=== PATIENT | female | born 1965 | race Caucasian/White ===

== ENCOUNTER → 2020-08-03 09:16 | Outpatient (CLI) | payer OTHER, SELFPAY ==
--- NOTE | 2020-08-03 | DI.US.S_ITS ---
PROCEDURE: US ABD AORTA ANEURYSM SCREEN INDICATIONS: SCREENING TECHNIQUE: Real time scanning was performed of the aorta and iliac arteries, with image documentation. COMPARISON: None. FINDINGS: Aorta: Proximal aortic diameter measures 2.1 cm. Mid-aorta measures 2.1 cm. Distal aortic diameter is 1.5 cm. Iliac arteries: Right common iliac artery measures 1.1 cm. Left common iliac artery measures 0.0 cm. IMPRESSION: No aneurysm found. Dictated by: El France M.D. on 08/03/2020 at 10:22 Approved by: El France M.D. on 08/03/2020 at 10:24
== END ==
PROVIDERS: PCP Family Medicine; Referring Provider Family Medicine; Visit Provider Family Medicine
DX: Z13.6 Encounter for screening for cardiovascular disorders (principal); Z82.49 Family history of ischemic heart disease and other diseases of the circulatory system
CPT/HCPCS: 76706

== ENCOUNTER 2020-11-11 06:16 | Emergency (ER) | payer OTHER, SELFPAY ==
[2020-11-11] VITALS (20 sets, daily range): BP systolic 121–186; BP diastolic 58–90; PULSE 54–71; RESP 16–18; TEMP 36; O2SAT 96–98; BMI 35.7
--- NOTE | 2020-11-11 06:49 | DI.CT.S_ITS ---
PROCEDURE: CT HEAD/BRAIN WO CON INDICATIONS: left leg numbness since yesterday TECHNIQUE: Noncontrast 4.5 mm thick angled axial sections acquired from the foramen magnum to the vertex, with coronal and sagittal reformats. For radiation dose reduction, the following was used: automated exposure control, adjustment of mA and/or kV according to patient size. COMPARISON: None. FINDINGS: Image quality: Artifact is present overlying the georgi, limiting evaluation. CSF spaces: Basal cisterns are patent. No extra-axial fluid collections. Ventricles are normal in size and shape. Brain: No midline shift. No intracranial masses or hemorrhage. Haynes-white matter interface is normal. Skull and face: Calvarium and visualized facial bones are intact, without suspicious lesions. Sinuses: Visualized sinuses and mastoids are clear. IMPRESSION: No acute intracranial process. The above findings are concordant with preliminary report. Dictated by: Leanna Cagle M.D. on 11/11/2020 at 7:45 Approved by: Leanna Cagle M.D. on 11/11/2020 at 7:48
--- NOTE | 2020-11-11 06:57 | ED.NEUROSD ---
HPI - Neuro Symptoms/Deficit <DO Robert Lazo Last Filed: 11/13/20 07:03> General Chief Complaint: Neuro Symptoms/Deficit Stated Complaint: left leg spasms/shaking/mild headache/pressure Time Seen by Provider: 11/11/20 06:36 Source: patient and family Mode of arrival: Ambulatory Limitations: no limitations History of Present Illness HPI Narrative: Patient is a 54-year-old female history of hypertension presenting today with left leg numbness and tingling. She says she woke up this morning and was tremoring and should bring than left leg went into a spasm of about 3 minutes and she still has numbness and tingling in that leg leg and it feels heavy. She has no difficulty ambulating. She also has a slight headache. No other extremity weakness no difficulty speaking or facial droop. No chest pain or shortness of breath. states that she is under lot of stress work. On Anticoagulants: No Related Data Allergies Allergy/AdvReac Type Severity Reaction Status Date / Time tramadol AdvReac Verified 11/11/20 09:06 Review of Systems <DO Robert Lazo Last Filed: 11/13/20 07:03> Review of Systems Narrative: GENERAL: Denies chills, fatigue, malaise, fever, sweats, travel HEENT: Denies sinus pain, ear pain, sore throat, difficulty swallowing, neck pain RESPIRATORY: Denies dyspnea, cough, wheezing, hemoptysis, sputum. CARDIOVASCULAR: Denies chest pain, palpitations, orthopnea, edema GASTROINTESTINAL: Denies nausea, vomiting, abdominal pain, diarrhea, constipation, melena. : Denies dysuria, frequency, incontinence, hematuria, urinary retention, flank pain. MUSCULOSKELETAL: Denies weakness, joint pain, or bony pain SKIN: No rash, no erythema, no pruritus NEUROLOGIC: See HPI PSYCHIATRIC: No concerning psychosocial issues. 12 point review of systems is negative except for those stated above and HPI Hematologic/Lymphatic On Anticoagulants: No Patient History <DO Robert Lazo Last Filed: 11/13/20 07:03> Social History Smoking Status: Current every day smoker Smoking Status: Current every day smoker tobacco type: vaping Substance Use Type: does not use Exam <DO Robert Lazo Last Filed: 11/13/20 07:03> Initial Vital Signs Initial Vital Signs: Vital Signs Temperature 96.8 F L 11/11/20 06:30 Pulse Rate 69 11/11/20 06:30 Respiratory Rate 18 11/11/20 06:30 Blood Pressure 186/87 H 11/11/20 06:30 Pulse Oximetry 96 11/11/20 06:30 GENERAL: Alert pleasant 54-year-old male and in no acute distress. HEENT: Head atraumatic,EOMI, pupils reactive, face symmetric, moist mucous membranes CARDIOVASCULAR: Regular rate and rhythm without murmurs, rubs or gallops. RESPIRATORY: Breath sounds equal bilaterally, no wheezes rales or rhonchi. ABDOMEN: Soft, nontender. Normoactive bowel sounds all 4 quadrants. No guarding or rebound. EXTREMITIES: Normal range of motion, no clubbing or edema. Neurovascularly intact NEUROLOGICAL: Alert and oriented x4.Normal gait and speech. Cranial nerves II through XII grossly intact. Good mfspur-ts-xtoh, good mzcv-ch-diye, strength equal bilaterally, no dysarthria or aphasia, sensation in tact to soft touch bilaterally, no visual changes, no facial droop SKIN: Warm, dry, no laceration, no petechiae, no rashes or lesions. <Nancy Cheung MD - Last Filed: 11/11/20 13:08> Initial Vital Signs Initial Vital Signs: Vital Signs Temperature 96.8 F L 11/11/20 06:30 Pulse Rate 69 11/11/20 06:30 Respiratory Rate 18 11/11/20 06:30 Blood Pressure 186/87 H 11/11/20 06:30 Pulse Oximetry 96 11/11/20 06:30 Scores <Millicent Armijo DO - Last Filed: 11/13/20 07:03> NIH Stroke Scale Level of Conciousness: Alert, keenly responsive Ask month/age: Answers both questions correctly. Open/close eyes, close hand: Performs both tasks correctly Best gaze horizontal: Normal Visual kenney: No visual loss Facial palsy: Normal symetrical movement Left arm drift: No drift for full 10 sec Right arm drift: No drift for full 10 sec Left leg drift: No drift for full 5 sec Right leg drift: No drift for full 5 sec Limb ataxia: Absent Sensory on face/arms/legs: Normal, no sensory loss Best language: No aphasia, normal Dysarthria: Normal Extinction or inattention: No abnormality Total NIH Stroke scale score: 0 <Nancy Cheung MD - Last Filed: 11/11/20 13:08> NIH Stroke Scale Total NIH Stroke scale score: 0 Course <Millicent Armijo DO - Last Filed: 11/13/20 07:03> Orders Ordered: Discontinued Medications Acetaminophen (Acetaminophen 325 Mg Tablet) 975 mg PO NOW ONE Stop: 11/11/20 08:36 Last Admin: 11/11/20 08:49 Dose: 325 mg Documented by: JULEE Aspirin (Aspirin 81 Mg Chew Tab) 324 mg PO NOW ONE Stop: 11/11/20 08:36 Last Admin: 11/11/20 08:49 Dose: 324 mg Documented by: JULEE Diazepam (Diazepam 10 Mg/2 Ml Syringe) 5 mg IV NOW ONE Stop: 11/11/20 08:37 Last Admin: 11/11/20 10:38 Dose: 5 mg Documented by: JULEE Vital Signs Vital signs: Vital Signs - 8 hr 11/11/20 06:30 11/11/20 06:46 11/11/20 06:53 Temperature 96.8 F L Pulse Rate 69 64 67 Respiratory Rate 18 Blood Pressure 186/87 H 168/90 H Pulse Oximetry 96 97 98 11/11/20 07:00 11/11/20 07:02 11/11/20 07:30 Temperature Pulse Rate 60 66 68 Respiratory Rate Blood Pressure 132/78 Pulse Oximetry 97 97 97 11/11/20 08:47 11/11/20 08:54 11/11/20 09:00 Temperature Pulse Rate 63 60 58 L Respiratory Rate 16 Blood Pressure 153/72 H 153/72 H Pulse Oximetry 96 97 97 11/11/20 09:01 11/11/20 09:30 11/11/20 10:00 Temperature Pulse Rate 64 57 L 56 L Respiratory Rate Blood Pressure 123/58 L 133/63 Pulse Oximetry 96 96 96 11/11/20 10:01 11/11/20 10:30 11/11/20 11:24 Temperature Pulse Rate 57 L 62 71 Respiratory Rate Blood Pressure 139/61 131/70 Pulse Oximetry 97 96 98 11/11/20 11:30 11/11/20 11:45 11/11/20 12:00 Temperature Pulse Rate 67 67 59 L Respiratory Rate Blood Pressure 136/76 124/69 Pulse Oximetry 96 98 97 11/11/20 12:30 Temperature Pulse Rate 54 L Respiratory Rate Blood Pressure 121/75 Pulse Oximetry 97 <Nancy Cheung MD - Last Filed: 11/11/20 13:08> Orders Ordered: Discontinued Medications Acetaminophen (Acetaminophen 325 Mg Tablet) 975 mg PO NOW ONE Stop: 11/11/20 08:36 Last Admin: 11/11/20 08:49 Dose: 325 mg Documented by: JULEE Aspirin (Aspirin 81 Mg Chew Tab) 324 mg PO NOW ONE Stop: 11/11/20 08:36 Last Admin: 11/11/20 08:49 Dose: 324 mg Documented by: JULEE Diazepam (Diazepam 10 Mg/2 Ml Syringe) 5 mg IV NOW ONE Stop: 11/11/20 08:37 Last Admin: 11/11/20 10:38 Dose: 5 mg Documented by: JULEE Vital Signs Vital signs: Vital Signs - 8 hr 11/11/20 06:30 11/11/20 06:46 11/11/20 06:53 Temperature 96.8 F L Pulse Rate 69 64 67 Respiratory Rate 18 Blood Pressure 186/87 H 168/90 H Pulse Oximetry 96 97 98 11/11/20 07:00 11/11/20 07:02 11/11/20 07:30 Temperature Pulse Rate 60 66 68 Respiratory Rate Blood Pressure 132/78 Pulse Oximetry 97 97 97 11/11/20 08:47 11/11/20 08:54 11/11/20 09:00 Temperature Pulse Rate 63 60 58 L Respiratory Rate 16 Blood Pressure 153/72 H 153/72 H Pulse Oximetry 96 97 97 11/11/20 09:01 11/11/20 09:30 11/11/20 10:00 Temperature Pulse Rate 64 57 L 56 L Respiratory Rate Blood Pressure 123/58 L 133/63 Pulse Oximetry 96 96 96 11/11/20 10:01 11/11/20 10:30 11/11/20 11:24 Temperature Pulse Rate 57 L 62 71 Respiratory Rate Blood Pressure 139/61 131/70 Pulse Oximetry 97 96 98 11/11/20 11:30 11/11/20 11:45 11/11/20 12:00 Temperature Pulse Rate 67 67 59 L Respiratory Rate Blood Pressure 136/76 124/69 Pulse Oximetry 96 98 97 11/11/20 12:30 Temperature Pulse Rate 54 L Respiratory Rate Blood Pressure 121/75 Pulse Oximetry 97 MDM - Neuro Symptoms/Deficit <Millicent Armijo DO - Last Filed: 11/13/20 07:03> Lab Data Result diagrams: 11/11/20 07:00 11/11/20 07:00 Labs: Lab Results 11/11/20 11/11/20 11/11/20 Range/Units 07:00 07:00 07:00 WBC 5.3 (4.5-11.0) X10^3/uL RBC 4.37 (4.0-5.2) X10^6/uL Hgb 13.6 (12.0-16.0) g/dL Hct 40.7 (36-46) % MCV 93.2 (80-100) fL MCH 31.1 (26-34) PG MCHC 33.4 (30-36) % RDW 11.7 (11.6-14.8) % Plt Count 259 (150-400) X10^3/uL Neut % (Auto) 62.8 (50-75) % Lymph % (Auto) 27.5 (25-40) % Mccone % (Auto) 6.4 (3-14) % Eos % (Auto) 2.8 (2-4) % Baso % (Auto) 0.5 (0-2) % Neut # (Auto) 3300 (9315-5390) /uL Lymph # (Auto) 1400 (8657-6525) /uL Mccone # (Auto) 300 (0-900) /uL Eos # (Auto) 100 (0-450) /uL Baso # (Auto) 0 (0-100) /uL Sodium 144 (137-145) mmol/L Potassium 3.9 (3.4-5.1) mmol/L Chloride 109 H (98-107) mmol/L Carbon Dioxide 29 (22-32) mmol/L BUN 16 (7-17) mg/dL Creatinine 0.58 (0.52-1.04) mg/dL Estimated GFR > 60.0 (>60) mL/min BUN/Creatinine Ratio 27.6 H (6-22) Glucose 104 H (70-100) mg/dL Calcium 9.1 (8.4-10.2) mg/dL Total Bilirubin 0.4 (0.2-1.3) mg/dL AST 25 (14-36) IU/L ALT 21 (<35) IU/L Alkaline Phosphatase 63 (38-126) U/L Total Creatine Kinase 82 (30-135) U/L CK-MB (CK-2) TNP CK-MB (CK-2) Rel Index TNP Troponin I < 0.012 (0.01-0.034) ng/mL Total Protein 6.8 (6.3-8.2) g/dL Albumin 4.1 (3.5-5.0) g/dL Globulin 2.7 (1.7-4.1) g/dL Albumin/Globulin Ratio 1.5 (1.0-2.8) Triglycerides 170 H (35-150) mg/dL Cholesterol 174 (140-199) mg/dL LDL Cholesterol, Calc 94 (<100) mg/dL HDL Cholesterol 46 (40-60) mg/dL MDM Narrative Medical decision making narrative: Patient has a weird symptoms but somewhat concerning for possible TIA or CVA with numbness and tingling although his NIH stroke scale is 0. Patient is signed out to Dr. Cheung for further workup <Nancy Cheung MD - Last Filed: 11/11/20 13:08> Lab Data Labs: Lab Results 11/11/20 11/11/20 11/11/20 Range/Units 07:00 07:00 07:00 WBC 5.3 (4.5-11.0) X10^3/uL RBC 4.37 (4.0-5.2) X10^6/uL Hgb 13.6 (12.0-16.0) g/dL Hct 40.7 (36-46) % MCV 93.2 (80-100) fL MCH 31.1 (26-34) PG MCHC 33.4 (30-36) % RDW 11.7 (11.6-14.8) % Plt Count 259 (150-400) X10^3/uL Neut % (Auto) 62.8 (50-75) % Lymph % (Auto) 27.5 (25-40) % Mccone % (Auto) 6.4 (3-14) % Eos % (Auto) 2.8 (2-4) % Baso % (Auto) 0.5 (0-2) % Neut # (Auto) 3300 (5947-3999) /uL Lymph # (Auto) 1400 (4141-9464) /uL Mccone # (Auto) 300 (0-900) /uL Eos # (Auto) 100 (0-450) /uL Baso # (Auto) 0 (0-100) /uL Sodium 144 (137-145) mmol/L Potassium 3.9 (3.4-5.1) mmol/L Chloride 109 H (98-107) mmol/L Carbon Dioxide 29 (22-32) mmol/L BUN 16 (7-17) mg/dL Creatinine 0.58 (0.52-1.04) mg/dL Estimated GFR > 60.0 (>60) mL/min BUN/Creatinine Ratio 27.6 H (6-22) Glucose 104 H (70-100) mg/dL Calcium 9.1 (8.4-10.2) mg/dL Total Bilirubin 0.4 (0.2-1.3) mg/dL AST 25 (14-36) IU/L ALT 21 (<35) IU/L Alkaline Phosphatase 63 (38-126) U/L Total Creatine Kinase 82 (30-135) U/L CK-MB (CK-2) TNP CK-MB (CK-2) Rel Index TNP Troponin I < 0.012 (0.01-0.034) ng/mL Total Protein 6.8 (6.3-8.2) g/dL Albumin 4.1 (3.5-5.0) g/dL Globulin 2.7 (1.7-4.1) g/dL Albumin/Globulin Ratio 1.5 (1.0-2.8) Triglycerides 170 H (35-150) mg/dL Cholesterol 174 (140-199) mg/dL LDL Cholesterol, Calc 94 (<100) mg/dL HDL Cholesterol 46 (40-60) mg/dL Imaging Data CT scan - head: Radiologist's Impression: FINDINGS: Image quality: Artifact is present overlying the georgi, limiting evaluation. CSF spaces: Basal cisterns are patent. No extra-axial fluid collections. Ventricles are normal in size and shape. Brain: No midline shift. No intracranial masses or hemorrhage. Haynes-white matter interface is normal. Skull and face: Calvarium and visualized facial bones are intact, without suspicious lesions. Sinuses: Visualized sinuses and mastoids are clear. IMPRESSION: No acute intracranial process. The above findings are concordant with preliminary report. Dictated by: Leanna Cagle M.D. on 11/11/2020 at 7:45 MRI brain: Radiologist's Impression: FINDINGS: Image quality: Diagnostic, with note made of motion artifact. BRAIN: CSF spaces: Ventricles are normal in size and shape. Basal cisterns are patent. No extra-axial fluid collections. Brain: No intracranial bleeds or mass effects. Haynes-white matter interface is normal. Diffusion weighted images show no acute ischemic insults. Brainstem appears normal. Normal intravascular flow voids are present. No abnormal intracranial enhancement. Skull and face: Calvarial marrow signal is normal. Orbits appear normal. Sinuses: Sinuses and mastoids are clear. BRAIN MR ANGIOGRAM: Anterior circulation: Intracranial internal carotid arteries are normal in size and enhancement. The flow within the paired anterior cerebral arteries is normal and symmetric. The flow within the middle cerebral arteries is normal and symmetric. The anterior communicating artery is not well seen. No stenoses, occlusions, or aneurysms. Posterior circulation: Note is made of bilateral type origins of the posterior cerebral arteries. No significant abnormality of the basilar artery is seen. No significant abnormality of the basilar artery is seen. The flow within the posterior cerebral arteries is normal and symmetric. The distal vertebral arteries are overall small in size, yet otherwise unremarkable. No aneurysms are seen. NECK MR ANGIOGRAM: Carotids: Great vessels demonstrate a conventional anatomy as they arise from the aortic arch. The origins of the common carotid arteries appear patent. The calibers and courses of both common carotid arteries are normal. The bifurcation regions appear normal bilaterally. The internal carotid arteries demonstrate normal caliber. Tortuosity is noted of the internal carotid arteries, right worse than left. Posterior circulation: The origins of the vertebral arteries appear patent. More superior portions of both vertebral arteries demonstrate normal course and caliber, and join to form a normal appearing basilar artery. Miscellaneous: Subclavian arteries appear patent. Pre-contrast images through the neck show no soft tissue abnormalities. IMPRESSION: BRAIN MRI: No findings of acute or subacute infarction can be seen. No masses or abnormal enhancement can be seen. BRAIN MR ANGIOGRAM: No significant intracranial arterial abnormality is seen. Mmoaly-rm-Fyynak developmental anomalies are incidentally noted. NECK MR ANGIOGRAM: Within the arteries of the neck, no hemodynamically significant stenosis can be seen. Dictated by: Aureliano Peck M.D. on 11/11/2020 at 10:35 ECG Data Interpretation: Sinus rhythm at a rate of 61 No acute ischemic changes Rightward axis, normal intervals MDM Narrative Medical decision making narrative: Patient has a weird symptoms but somewhat concerning for possible TIA or CVA with numbness and tingling although his NIH stroke scale is 0. Patient is signed out to Dr. Cheung for further workup 830 patient is re-examined. She describes acute onset paresthesia left arm left leg with tremor in the left anterior thigh. The tremor has essentially resolved she still has some minor paresthesia in the left leg. She did describe any motor symptoms. She does have a strong family history of stroke. She herself has never had symptoms nor cardiac events. Blood pressure was significantly elevated on arrival but has come down nicely at blood pressure medications but not aspirin or cholesterol medications. Will add a lipid panel to current labs. Given the arm and leg paresthesias still minor paresthesia in the left lower extremity will do a brain MR/MRI. Estimated time of procedure is 3:00 p.m. this afternoon. Findings are reviewed with patient. 100pm patient is re-examined. Symptoms of all entirely resolved. MR brain stroke protocol shows no acute stroke and no vascular abnormalities. Uncertain etiology for this brief episode of paresthesia however stroke this point is less likely. No evidence of atrial fibrillation or cardiac disease at this time. She is safe for home discharge will recommend baby aspirin daily and ask her to follow-up with her primary care physician Discharge Plan Departure Patient Disposition: Home Clinical Impression: Transient cerebral ischemia Qualifiers: Transient cerebral ischemia type: unspecified Qualified Code(s): G45.9 - Transient cerebral ischemic attack, unspecified Instructions: DI for Transient Ischemic Attack Activity Restrictions/Additional Instructions: Thank you for coming in today Your symptoms are somewhat subtle however you are awfully young to have such subtle symptoms. Your brain CT and the brain MRI and magnetic resonance angiogram are all reassuring. There are no masses, tumors, bleeding and the MRI does not suggest an acute stroke. There are no abnormalities within the blood vessels that would be a risk factor for stroke. At this point, you need to continue all of your blood pressure medications. I would ask you to add a baby aspirin daily. Please schedule an appointment with your primary care physician to discuss this ER visit and the diagnosis of transient ischemic attack. She can review your cholesterol panel with you and talk about additional risk reduction possibilities. We also need to make sure that your blood pressure is well controlled. If you have worsening signs or symptoms, please return to the ER Referrals: Gissell Schroeder MD [Primary Care Provider] -
[2020-11-11 07:11] LABS: Add Manual Diff / Slide Review NO; Basophils Absolute Auto 0 /uL (0-100); Basophils Percent Auto 0.5 % (0-2); Eosinophils Absolute Auto 100 /uL (0-450); Eosinophils Percent Auto 2.8 % (2-4); Hematocrit 40.7 % (36-46); Hemoglobin 13.6 g/dL (12.0-16.0); Lymphocytes Absolute Auto 1400 /uL (1100-4500); Lymphocytes Percent Auto 27.5 % (25-40); Mean Corpuscular HGB Conc 33.4 % (30-36); Mean Corpuscular Hemoglobin 31.1 PG (26-34); Mean Corpuscular Volume 93.2 fL (80-100); Monocytes Absolute Auto 300 /uL (0-900); Monocytes Percent Auto 6.4 % (3-14); Neutrophils Absolute Auto 3300 /uL (1500-7000); Neutrophils Percent Auto 62.8 % (50-75); Platelet Count 259 X10^3/uL (150-400); Red Blood Cell Count 4.37 X10^6/uL (4.0-5.2); Red Cell Distribution Width 11.7 % (11.6-14.8); White Blood Cell Count 5.3 X10^3/uL (4.5-11.0)
[2020-11-11 07:20] LABS: Alanine Aminotransferase 21 IU/L (<35); Albumin 4.1 g/dL (3.5-5.0); Albumin Globulin Ratio 1.5 (1.0-2.8); Alkaline Phosphatase 63 U/L (38-126); Aspartate Aminotransferase 25 IU/L (14-36); BUN Creatinine Ratio 27.6 (6-22); Bilirubin Total 0.4 mg/dL (0.2-1.3); Blood Urea Nitrogen 16 mg/dL (7-17); Calcium 9.1 mg/dL (8.4-10.2); Carbon Dioxide 29 mmol/L (22-32); Chloride 109 mmol/L (98-107); Creatine Kinase 82 U/L (30-135); Estimated Glomerular Filt Rate > 60.0 mL/min (>60); Globulin 2.7 g/dL (1.7-4.1); Glucose 104 mg/dL (70-100); HEMOLYSIS < 15 (0-50); Potassium 3.9 mmol/L (3.4-5.1); Sodium 144 mmol/L (137-145); Total Protein 6.8 g/dL (6.3-8.2)
[2020-11-11 07:32] LABS: Troponin I < 0.012 ng/mL (0.01-0.034)
--- NOTE | 2020-11-11 08:35 | DI.MRI.S_ITS ---
PROCEDURE: MR STROKE Pre- and post-contrast brain MRI, non-contrast brain MR angiogram, pre- and postcontrast neck MR angiogram INDICATIONS: Left leg/arm paresthesia, acute onset, not completely resolv TECHNIQUE: Brain: Noncontrast axial T1 spin echo, axial T2 fast spin echo, sagittal and axial FLAIR, coronal T2 fast spin echo, axial gradient echo, axial diffusion and ADC through the brain. After the administration of contrast, axial 3D VIBE of the cranial vasculature and brain. Brain MRA: Non-contrast 3-D time of flight MR angiogram, with multiple hynrpwn-lmqqmyrod-zfiuskjrra (MIP) reformats performed. Neck MRA: Axial and sagittal TruFISP through the neck. Coronal dynamic MR angiogram during administration of contrast in the arterial and venous phases, with 3-dimenstional xltetgr-volummtkq-cfbxctddsy (MIP) reformats constructed from subtraction images. COMPARISON: [facility], CT, CT HEAD/BRAIN WO CON, 11/11/2020, 7:35. FINDINGS: Image quality: Diagnostic, with note made of motion artifact. BRAIN: CSF spaces: Ventricles are normal in size and shape. Basal cisterns are patent. No extra-axial fluid collections. Brain: No intracranial bleeds or mass effects. Haynes-white matter interface is normal. Diffusion weighted images show no acute ischemic insults. Brainstem appears normal. Normal intravascular flow voids are present. No abnormal intracranial enhancement. Skull and face: Calvarial marrow signal is normal. Orbits appear normal. Sinuses: Sinuses and mastoids are clear. BRAIN MR ANGIOGRAM: Anterior circulation: Intracranial internal carotid arteries are normal in size and enhancement. The flow within the paired anterior cerebral arteries is normal and symmetric. The flow within the middle cerebral arteries is normal and symmetric. The anterior communicating artery is not well seen. No stenoses, occlusions, or aneurysms. Posterior circulation: Note is made of bilateral type origins of the posterior cerebral arteries. No significant abnormality of the basilar artery is seen. No significant abnormality of the basilar artery is seen. The flow within the posterior cerebral arteries is normal and symmetric. The distal vertebral arteries are overall small in size, yet otherwise unremarkable. No aneurysms are seen. NECK MR ANGIOGRAM: Carotids: Great vessels demonstrate a conventional anatomy as they arise from the aortic arch. The origins of the common carotid arteries appear patent. The calibers and courses of both common carotid arteries are normal. The bifurcation regions appear normal bilaterally. The internal carotid arteries demonstrate normal caliber. Tortuosity is noted of the internal carotid arteries, right worse than left. Posterior circulation: The origins of the vertebral arteries appear patent. More superior portions of both vertebral arteries demonstrate normal course and caliber, and join to form a normal appearing basilar artery. Miscellaneous: Subclavian arteries appear patent. Pre-contrast images through the neck show no soft tissue abnormalities. IMPRESSION: BRAIN MRI: No findings of acute or subacute infarction can be seen. No masses or abnormal enhancement can be seen. BRAIN MR ANGIOGRAM: No significant intracranial arterial abnormality is seen. Sjrkvi-vb-Lcmxwg developmental anomalies are incidentally noted. NECK MR ANGIOGRAM: Within the arteries of the neck, no hemodynamically significant stenosis can be seen. Dictated by: Aureliano Peck M.D. on 11/11/2020 at 10:35 Approved by: Aureliano Peck M.D. on 11/11/2020 at 10:39
[2020-11-11 08:49] LABS: Cholesterol 174 mg/dL (140-199); HDL Cholesterol 46 mg/dL (40-60); LDL Cholesterol Calculated 94 mg/dL (<100); Triglycerides 170 mg/dL (35-150)
[2020-11-11] MEDS: ACETAMINOPHEN 325 MG TABLET 975 MG PO (08:49)
[2020-11-11] MEDS: ASPIRIN 81 MG CHEW TAB 324 MG PO (08:49)
--- NOTE | 2020-11-11 09:16 | PC.NURSE ---
Patient had reported numbness and tingling at previous assessment but has now resolved.
[2020-11-11] MEDS: diazePAM 10 MG/2 ML SYRINGE 5 MG IV (10:38)
== END 2020-11-11 13:18 | disposition home or self-care (01) ==
PROVIDERS: Emergency Medicine; Emergency Provider Emergency Medicine; PCP Family Medicine
DX: G45.9 Transient cerebral ischemic attack, unspecified (principal); R51.9 Headache, unspecified
CPT/HCPCS: 36415; 70450; 70548; 70553; 80053; 80061; 82550; 84484; 85025; 93005; 93010; 96374; 99285; J3360

== ENCOUNTER → 2020-12-27 15:58 | Outpatient (CLI) | payer OTHER, SELFPAY ==
--- NOTE | 2020-12-27 16:01 | DI.ECHO.S_ITS ---
[facility] +---------+ : : [address] : [place] : : : : [id number] : : : : Phone: [phone]---------+ Echocardiogram Report + + :Name: LYDIA QUINN Study Date: 12/27/2020 Height: 65 in : :[facility] ReadingLocation: Weight: 213 lb : : Gender: Female BSA: 2.0 m2 : :: 1965 Age: 55 yrs BP: 146/94 mmHg: :Reason For Study: TIA : :Ordering Physician: ALANIS, : :ANUEL Performed By: Katherine Gaspar : :Referring: ANUEL THAPA : + + Interpretation Summary Normal both left and right ventricle size and function. The ejection fraction is 60-65%. No valvular abnormality. Injection of contrast documented no interatrial shunt. Procedure: A two-dimensional transthoracic echocardiogram with color flow and Doppler was performed. The study quality was technically adequate. The injection was performed through an intravenous line in the left arm. A saline contrast injection was performed to assess for cardiac shunting. The patient was in 53-62 during the exam. Left Ventricle: The left ventricle is normal in size and wall thickness. The ejection fraction is estimated to be 60-65%. There are no focal wall motion abnormalities. Diastolic parameters suggest probable normal left ventricular diastolic function and normal filling pressures. Right Ventricle: The right ventricle is normal in size and function. Atria: Both atria are normal in size. There is no Doppler evidence for an interatrial shunt. Injection of contrast documented no interatrial shunt. Mitral Valve: The mitral valve is normal in structure and function. There is trace mitral regurgitation. Aortic Valve: The aortic valve is trileaflet. The aortic valve opens well. There is no aortic valve stenosis. No aortic regurgitation is present. Tricuspid Valve: The tricuspid valve is normal in structure and function. Pulmonary artery pressures cannot be estimated because of the lack of a measurable TR jet velocity but the IVC suggests a CVP of around 8 mmHg. Pulmonic Valve: The pulmonic valve leaflets are thin and pliable; valve motion is normal. There is no pulmonic valvular regurgitation. Great Vessels: The aortic root is normal size. The dimensions of the ascending aorta are normal. The IVC is dilated (diameter is greater than 2.1 cm) yet it collapses greater than 50% with a sniff. This suggests a right atrial pressure of 8 mm Hg. Pericardium/ Pleura There is no pericardial effusion. There is no pleural effusion. MMode/2D Measurements & Calculations LVIDd: 4.6 cm LVOT diam: 2.0 cm LVIDs: 3.3 cm Ao root diam: 3.2 cm FS: 29.3 % asc Aorta Diam: 3.4 cm IVSd: 0.83 cm Ao Arch Diam (Prox Trans): 2.8 cm LVPWd: 0.83 cm LV muse. diameter/BSA (cm/m^2): 2.3 LV sys. diameter/BSA (cm/m^2): 1.6 LA A2 area: 16.6 cm2 RA long axis: 4.6 cm LA A4 area: 18.2 cm2 RA area: 13.3 cm2 LA length (vol): 5.2 cm RA vol: 32.6 ml LA vol: 48.9 ml RA : 16.0 ml/m2 LA vol index: 24.0 ml/m2 IVC diam: 2.2 cm RVD1 (basal): 3.9 cm TAPSE: 2.2 cm Doppler Measurements & Calculations Ao V2 max: 124.8 cm/sec LVOT Max Boy: 108.9 cm/sec Ao V2 mean: 88.8 cm/sec LV V1 max P.7 mmHg Ao max P.2 mmHg LV V1 VTI: 19.5 cm Ao mean P.4 mmHg MERRILL(I,D): 2.4 cm2 Ao V2 VTI: 26.7 cm MERRILL(V,D): 2.9 cm2 sev ratio: 0.73 MERRILL indexed to BSA (cm^2/m^2): 1.2 MV E max boy: 73.4 cm/sec PA V2 max: 95.3 cm/sec MV A max boy: 73.0 cm/sec PA V2 mean: 64.7 cm/sec MV E/A: 1.0 PA mean P.9 mmHg Med Peak E' Boy: 8.3 cm/sec PA pr(Accel): 13.9 mmHg E/E' med: 8.9 Lat Peak E' Boy: 11.1 cm/sec E/E' lat: 6.6 E/e' average: 7.8 MV dec time: 0.22 sec SV(OT): 64.2 ml Electronically signed by: Lamin Small on Reading Physician:12/27/2020 05:44 PM
== END ==
PROVIDERS: PCP Family Medicine; Referring Provider Family Medicine; Visit Provider Family Medicine
DX: G45.9 Transient cerebral ischemic attack, unspecified (principal); Z82.49 Family history of ischemic heart disease and other diseases of the circulatory system; I10 Essential (primary) hypertension
CPT/HCPCS: 93306

== ENCOUNTER → 2020-12-30 13:29 | Outpatient (CLI) | payer OTHER, SELFPAY ==
--- NOTE | 2021-01-19 10:19 | P.HOLT.S_ITS ---
[employer] Report Referral & Results Date Patient Seen: 12/30/20 Requesting provider: Gissell Schroeder Indication: TIA Duration of monitoring (days): 7 Diary information: There are no patient events to review Data: Minimum heart rate identified was 49 beats per minute at 05:00 on 01/05/2021 Maximum sinus heart rate was 126 beats per minute at 12:42 on 01/02/2021 Maximum overall heart rate was 141 beats per minute at 03:27 on 01/01/2021 during a run of atrial tachycardia/SVT Less than 1% of identified beats were ventricular or supraventricular ectopic in origin, which would classify them as rare. There was 1 run of atrial tachycardia was 14 beats in duration at a rate of 141 beats per minute. 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
== END ==
PROVIDERS: PCP Family Medicine; Referring Provider Family Medicine; Visit Provider Family Medicine
DX: G45.9 Transient cerebral ischemic attack, unspecified (principal)
CPT/HCPCS: 93242; 93244

== ENCOUNTER → 2022-10-05 16:02 | Outpatient (CLI) | payer OTHER, SELFPAY ==
--- NOTE | 2022-10-05 16:13 | DI.RAD.S_ITS ---
PROCEDURE: XR FOOT RT MIN 3V INDICATIONS: R foot pain TECHNIQUE: 3 views of the foot were acquired. COMPARISON: None. FINDINGS: Bones: No fractures or dislocations. No suspicious bony lesions. Small dorsal and plantar calcaneal bone spurs. Soft tissues: No tibiotalar joint effusion. Achilles tendon appears normal. IMPRESSION: Calcaneal bone spurs. Dictated by: Bernadette Rojas MD, PhD on 10/05/2022 at 16:40 Approved by: Bernadette Rojas MD, PhD on 10/05/2022 at 16:40
== END ==
PROVIDERS: PCP Family Medicine; Referring Provider Registered Nurse; Visit Provider Registered Nurse
DX: M79.671 Pain in right foot (principal); M77.31 Calcaneal spur, right foot
CPT/HCPCS: 73630